=== PATIENT | female | born 1970 | race Caucasian/White ===

== ENCOUNTER 2022-08-22 07:07 | Outpatient (CLI) | payer BC, SELFPAY ==
--- NOTE | 2022-08-22 07:15 | CRLHL7_ITS ---
For Patients: As a result of the Cures Act, medical imaging exams and procedure reports are released immediately into your electronic medical record. You may view this report before your referring provider. If you have questions, please contact your health care provider. INDICATION: Tinnitus. TECHNIQUE: Brain and temporal bone MRI with contrast. The following sequences were obtained: DWI and ADC mapping sequences. Sagittal T1 weighted sequence. Axial FLAIR and JIL T2 weighted sequences of the whole brain. 3D T2-weighted CISS sequence of the temporal bones. Thin section T1 weighted axial and coronal pre-contrast and post-contrast sequences of the temporal bones. T1 weighted post-contrast sequence(s) of the whole brain. 15 cc of Dotarem gadolinium based contrast agent was used. COMPARISON : None. FINDINGS: The membranous labyrinths are normal in appearance, with no signal abnormality or malformation. No mass or pathologic enhancement within the internal auditory canals or the cerebellopontine angle cisterns. The cisternal and canalicular segments of the 7th/8th cranial nerve complexes are normal in appearance. The other imaged cranial nerve segments are normal in appearance. Brainstem and cerebellum are normal. No evidence of acute ischemia. No evidence of acute or chronic intracranial blood products. No mass or pathologic intracranial enhancement. No intracranial signal abnormality. No hydrocephalus or extra-axial collections. The pituitary gland, parasellar structures and optic chiasm are normal. All the major intracranial vascular structures demonstrate normal flow-related signal. The orbital contents are normal. No calvarial or skull base marrow replacing process. No obstructive sinus disease. No extracranial soft tissue findings. IMPRESSION: 1. Normal appearance of the internal auditory pathways on high resolution imaging of the temporal bones. No mass or pathologic enhancement within the internal auditory canals or CPA cisterns. Normal appearance of the 7th/8th cranial nerves. 2. No acute infarction other acute intracranial 3. No other significant intracranial abnormalities. Dictated by Sam Harper MD @ 08/22/2022 3:45:15 PM (Electronically Signed)
== END 2022-08-22 07:08 | disposition home or self-care (01) ==
PROVIDERS: PCP Family Medicine; Visit Provider Otolaryngology
DX: H93.19 Tinnitus, unspecified ear (principal)
CPT/HCPCS: 70553; A9575

== ENCOUNTER 2022-08-30 11:38 | Outpatient (CLI) | payer BC, SELFPAY | END 2022-08-30 11:39 | disposition home or self-care (01) | PROVIDERS: PCP Family Medicine; Visit Provider Family Medicine | DX: Z00.00 Encounter for general adult medical examination without abnormal findings (principal); H91.90 Unspecified hearing loss, unspecified ear; Z83.2 Family history of diseases of the blood and blood-forming organs and certain disorders involving the immune mechanism; Z13.6 Encounter for screening for cardiovascular disorders | CPT/HCPCS: 80053; 80061; 83001; 83520; 84443; 86140; 86431 ==

== ENCOUNTER 2023-06-17 08:16 | Outpatient (CLI) | payer BC, SELFPAY | END 2023-06-17 08:17 | disposition home or self-care (01) | PROVIDERS: PCP Family Medicine; Visit Provider Family Medicine | DX: Z83.3 Family history of diabetes mellitus (principal); Z13.1 Encounter for screening for diabetes mellitus; Z13.220 Encounter for screening for lipoid disorders; Z11.59 Encounter for screening for other viral diseases | CPT/HCPCS: 80053; 80061; 86803 ==

== ENCOUNTER 2024-04-02 09:10 | Outpatient (CLI) | payer BC, SELFPAY ==
--- NOTE | 2024-04-02 09:15 | CRLHL7_ITS ---
For Patients: As a result of the Cures Act, medical imaging exams and procedure reports are released immediately into your electronic medical record. You may view this report before your referring provider. If you have questions, please contact your health care provider. BILATERAL SCREENING MAMMOGRAM WITH COMPUTER-AIDED DETECTION AND TOMOSYNTHESIS TECHNIQUE: CC and MLO views were obtained. These mammographic images have been obtained using full-field digital technique. These mammographic images were interpreted with the benefit of computer-aided detection. Breast Tomosynthesis was used in this interpretation. COMPARISON FILM: 03/01/23, 11/29/21, 11/15/20. FINDINGS: There are scattered areas of fibroglandular density IMPRESSION: There is no radiographic evidence for malignancy. ASSESSMENT: BI-RADS Category 1: Negative RECOMMENDATION: Routine screening mammogram in 1 year. A lay language report of this examination will be provided to the patient. Ashok Matos M.D. Diagnostic Radiologist [email or web address] Transcribed: 1:58 p.wong bonilla/Dictated by: Ashok Matos MD @ 04/02/2024 11:43:00 AM (Electronically Signed)
== END 2024-04-02 09:11 | disposition home or self-care (01) ==
LOC: MAMMO 09:11
PROVIDERS: PCP Family Medicine; Visit Provider Family Medicine
DX: Z12.31 Encounter for screening mammogram for malignant neoplasm of breast (principal)
CPT/HCPCS: 77063; 77067

== ENCOUNTER 2024-07-09 10:05 | Outpatient (CLI) | payer BC, SELFPAY | END 2024-07-09 10:06 | disposition home or self-care (01) | PROVIDERS: PCP Family Medicine; Visit Provider Family Medicine | DX: M76.60 Achilles tendinitis, unspecified leg (principal); Z13.6 Encounter for screening for cardiovascular disorders; Z83.3 Family history of diabetes mellitus; Z13.29 Encounter for screening for other suspected endocrine disorder; Z87.898 Personal history of other specified conditions; Z13.1 Encounter for screening for diabetes mellitus; Z13.9 Encounter for screening, unspecified | CPT/HCPCS: 80053; 80061; 84443; 86038; 86039 ==

== ENCOUNTER 2025-04-16 12:53 | Outpatient (CLI) | payer BC, SELFPAY ==
--- NOTE | 2025-04-16 13:00 | CRLHL7_ITS ---
For Patients: As a result of the Century Cures Act, medical imaging exams and procedure reports are released immediately into your electronic medical record. You may view this report before your referring provider. If you have questions, please contact your health care provider. INDICATION: BILATERAL SCREENING MAMMOGRAM, ASYMPTOMATIC 54 Y/O FEMALE COMPARISON: 04/02/2024, 03/01/2023, 11/29/2021 TECHNIQUE: Digital mammogram in CC and MLO projections including computer-aided detection (CAD) and tomosynthesis. BREAST COMPOSITION: There are scattered areas of fibroglandular density. FINDINGS: No suspicious findings. ASSESSMENT: BI-RADS 1 Negative RECOMMENDATION: Annual screening mammogram. A lay language report of this examination will be provided to the patient. Dictated by: Ashok Matos MD @ 04/19/2025 10:51:24 (Electronically Signed)
== END 2025-04-16 12:54 | disposition home or self-care (01) ==
LOC: MAMMO 12:53
PROVIDERS: PCP Family Medicine; Visit Provider Family Medicine
DX: Z12.31 Encounter for screening mammogram for malignant neoplasm of breast (principal)
CPT/HCPCS: 77063; 77067